=== PATIENT | female | born 1990 | race Caucasian/White ===

== ENCOUNTER 2016-10-08 22:23 | Emergency (ER) | payer SELFPAY ==
[~2016-10-08] VITALS: Ht 170.2 cm; Wt 50.0 kg
[2016-10-08 22:28] VITALS: BP 142/98
[2016-10-09] MEDS ORDERED: BACITRACIN ZINC OINT UDPKT TOP ONE (00:15)
[2016-10-09] MEDS ORDERED: HYDROCODONE/APAP 7.5/325MG 1 TAB TABLET PO ONE (00:15)
[2016-10-09] MEDS ORDERED: LIDOCAINE HCL 1% 20ML VIAL (Pyxis) INJ MC ONE (00:30)
== END 2016-10-09 03:50 | disposition home or self-care (01) ==
LOC: ER 22:38
DX: S02.2XXA Fracture of nasal bones, initial encounter for closed fracture (principal); S02.401A Maxillary fracture, unspecified side, initial encounter for closed fracture; S80.02XA Contusion of left knee, initial encounter; S20.211A Contusion of right front wall of thorax, initial encounter; V49.49XA Driver injured in collision with other motor vehicles in traffic accident, initial encounter; Y93.89 Activity, other specified; Y92.89 Other specified places as the place of occurrence of the external cause; Y99.8 Other external cause status
CPT/HCPCS: 12011; 70450; 70486; 71010; 73562; 81025; 99284; A4217; J3490; Z7610